=== PATIENT | male | born 1950 | race Caucasian/White ===

== ENCOUNTER 2018-03-28 21:40 | Outpatient (CLI) | payer MEDICARE | END 2018-03-28 21:41 | disposition EMS.NT | LOC: EMS 21:40 | PROVIDERS: ATTEND Surgery | DX: R55 Syncope and collapse (principal) ==

== ENCOUNTER 2018-03-28 22:31 | Emergency (ER) | payer MEDICARE ==
[2018-03-28 23:07] LABS: BASOPHILS # (AUTO) 0.1 10^3/uL (0.0-0.1); BASOPHILS % (AUTO) 0.8 %; EOSINOPHILS # (AUTO) 0.3 10^3/uL (0.0-0.7); EOSINOPHILS % (AUTO) 2.8 %; HGB - HEMOGLOBIN 14.8 g/dL (14.0-18.0); LYMPHOCYTES % (AUTO) 20.3 %; MEAN CORPUSCULAR HEMOGLOBIN 34.9 pg (27.0-31.0); MEAN CORPUSCULAR HGB CONC 34.9 g/dL (32.0-36.0); MEAN PLATELET VOLUME 8.4 fL (7.4-11.4); MONOCYTES # (AUTO) 0.9 10^3/uL (0.0-1.0); MONOCYTES % (AUTO) 9.6 %; NEUTROPHILS # (AUTO) 6.5 10^3/uL (1.5-6.6); NEUTROPHILS % (AUTO) 66.5 %; PLT - PLATELET COUNT 167 10^3/uL (130-450); RED BLOOD COUNT 4.23 10^6/uL (4.70-6.10); RED CELL DISTRIBUTION WIDTH 12.6 % (12.0-15.0); WHITE BLOOD COUNT 9.8 x10^3/uL (4.8-10.8)
[2018-03-28] MEDS ORDERED: SODIUM CHLORIDE 0.9% 1,000 ML IV ONE (23:10)
--- NOTE | 2018-03-28 23:12 | ED Physician Documentation ---
History of Present Illness - Stated complaint Stated Complaint: DIZZY - Chief complaint Chief Complaint: Neuro - History obtained from History obtained from: Patient, Family, Friend - History of Present Illness Timing: Today Pain level max: 0 Pain level now: 0 Improved by: Rest Worsened by: Standing up quickly - Additonal information Additional information: Patient is a 68-year-old male who presents to the emergency department after spending approximately 30 minutes from a 104 degree hot tub, he stood up and felt lightheaded and dizzy. This quickly resolved. No syncope. No injury. No chest pain. No palpitations. No abdominal pain. No headache. He also had 4 alcoholic beverages tonight. Currently feels normal. Review of Systems Ten Systems: 10 systems reviewed and negative Constitutional: denies: Fever, Chills Ears: denies: Ear pain Nose: denies: Rhinorrhea / runny nose, Congestion Throat: denies: Sore throat Cardiac: denies: Chest pain / pressure, Palpitations Respiratory: denies: Cough GI: denies: Abdominal Pain, Nausea, Vomiting, Diarrhea Skin: denies: Rash Musculoskeletal: denies: Neck pain, Back pain Neurologic: denies: Focal weakness, Numbness, Syncope, Seizure, Confused, Altered mental status, Headache PD PAST MEDICAL HISTORY - Past Medical History Past Medical History: Yes Cardiovascular: Hypertension, High cholesterol Respiratory: None Neuro: None Endocrine/Autoimmune: None GI: None : None HEENT: None Psych: None Musculoskeletal: None Derm: None - Past Surgical History Past Surgical History: Yes Ortho: Knee replacement, Spine surgery - Allergies Allergies/Adverse Reactions: Allergies Allergy/AdvReac Type Severity Reaction Status Date / Time No Known Drug Allergies Allergy Verified 03/28/18 23:16 - Social History Does the pt smoke?: Yes Smoking Status: Current some day smoker Does the pt drink ETOH?: Yes ETOH Use: Beer Does the pt have substance abuse?: No - Immunizations Immunizations are current?: Yes - POLST Patient has POLST: No PD ED PE NORMAL - Vitals Vital signs reviewed: Yes - General General: Alert and oriented X 3, No acute distress - HEENT HEENT: Moist mucous membranes - Neck Neck: Supple, no meningeal sign - Cardiac Cardiac: RRR, Strong equal pulses - Respiratory Respiratory: No respiratory distress, Clear bilaterally - Abdomen Abdomen: Soft, Non tender, Non distended - Back Back: No CVA TTP, No spinal TTP - Derm Derm: Warm and dry - Extremities Extremities: No edema, No calf tenderness / cord - Neuro Neuro: Alert and oriented X 3, 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, No motor deficit, No sensory deficit, Normal speech Eye Opening: Spontaneous Motor: Obeys Commands Verbal: Oriented GCS Score: 15 - Psych Psych: Normal mood, Normal affect Results - Vitals Vitals: Vital Signs - 24 hr 03/28/18 03/28/18 22:40 23:48 Temperature 36.4 C L 36.6 C Heart Rate 60 68 Respiratory 18 16 Rate Blood Pressure 130/77 133/82 H O2 Saturation 94 95 Oxygen O2 Source Room air - EKG (time done) 2244 Rate: Rate (enter#) (65) Rhythm: NSR [place]: Normal Intervals: Normal [place] QRS: Normal Ischemia: Normal ST segments - Labs Labs: Laboratory Tests 03/28/18 03/28/18 03/28/18 23:03 23:03 23:03 WBC 9.8 RBC 4.23 L Hgb 14.8 Hct 42.3 MCV 100.0 H MCH 34.9 H MCHC 34.9 RDW 12.6 Plt Count 167 MPV 8.4 Neut # (Auto) 6.5 Lymph # (Auto) 2.0 [place] # (Auto) 0.9 Eos # (Auto) 0.3 Baso # (Auto) 0.1 Absolute Nucleated RBC 0.01 Nucleated RBC % 0.1 Sodium 136 Potassium 3.5 Chloride 100 L Carbon Dioxide 28 Anion Gap 8.0 BUN 16 Creatinine 1.1 Estimated GFR (MDRD) 66 L Glucose 106 H Calcium 8.9 Total Bilirubin 1.0 AST 24 ALT 28 Alkaline Phosphatase 72 Troponin I < 0.04 Total Protein 7.1 Albumin 4.4 Globulin 2.7 Albumin/Globulin Ratio 1.6 Lipase 33 - Rads (name of study) cxr Radiology: Prelim report reviewed, EMP read contemporaneously, See rad report (normal) PD MEDICAL DECISION MAKING - ED course Complexity details: reviewed results, re-evaluated patient, considered differential, d/w patient, d/w family ED course: 68-year-old male with what appears to be vasovagal near syncope upon exiting a hot tub today after spending approximately 30 minutes in the hot tub. Was drinking alcohol as well. He had reportedly low blood pressure on scene. Curre ntly asymptomatic. Normal EKG and laboratory testing. Tolerating p.o. without difficulty. NIH stroke scale is 0. Normal gait. Patient and family counseled regarding signs and symptoms for which I believe and urgent re-evaluation would be necessary. Patient with good understanding of and agreement to plan and is comfortable going home at this time This document was made in part using voice recognition software. While efforts are made to proofread this document, sound alike and grammatical errors may occur. Departure - Departure Disposition: 01 Home, Self Care Clinical Impression: Vasovagal near syncope Condition: Good Instructions: ED Near Syncope Vasovagal Follow-Up: Frederick Merrill MD [Primary Care Provider] - Within 1 week Comments: Drink plenty of water at home. Return if you worsen. Your testing is normal tonight. Discharge Date/Time: 03/28/18 23:56
[2018-03-28 23:19] LABS: ALBUMIN 4.4 g/dL (3.2-5.5); ALBUMIN/GLOBULIN RATIO 1.6 (1.0-2.2); CALCIUM 8.9 mg/dL (8.5-10.3); CREATININE 1.1 mg/dL (0.6-1.2); TOTAL PROTEIN 7.1 g/dL (6.7-8.2)
--- NOTE | 2018-03-28 23:35 | XRAY Report ---
Reason: Chest Pain Procedure Date: 03/28/2018 Accession Number: [id number] / [id number] Procedure: XR - Chest 1 View X-Ray CPT Code: 50441 FULL RESULT: EXAM: CHEST RADIOGRAPHY EXAM DATE: 03/28/2018 11:21 PM. CLINICAL HISTORY: Chest Pain. COMPARISON: None. TECHNIQUE: 1 view. FINDINGS: Lungs/Pleura: No focal opacities evident. No pleural effusion. No pneumothorax. Mediastinum: Within exam limitations, the cardiomediastinal contour is normal. Other: Age-related spine changes noted. IMPRESSION: Normal single view chest. [facility]
[2018-03-28 23:49] VITALS: BP 133/82
== END 2018-03-28 23:56 | disposition home or self-care (01) ==
LOC: ED 22:31
DX: R55 Syncope and collapse (principal); I10 Essential (primary) hypertension; E78.00 Pure hypercholesterolemia, unspecified; Z96.659 Presence of unspecified artificial knee joint; F17.200 Nicotine dependence, unspecified, uncomplicated
CPT/HCPCS: 36415; 71045; 80053; 83690; 84484; 85025; 93005; 99284